=== PATIENT | female | born 1960 | race Caucasian/White ===

== ENCOUNTER → 2019-10-29 10:39 | Outpatient (BNVA) | payer BC, SELFPAY | PROVIDERS: Visit Provider Nurse Practitioner Family | DX: I10 Essential (primary) hypertension (principal) | CPT/HCPCS: 80053; 80061; 84443; 85025 ==

== ENCOUNTER → 2020-04-07 13:17 | Outpatient (BNVA) | payer BC, SELFPAY | PROVIDERS: Visit Provider Nurse Practitioner Family | DX: Z20.828 Contact with and (suspected) exposure to other viral communicable diseases (principal); J06.9 Acute upper respiratory infection, unspecified | CPT/HCPCS: 87635 ==

== ENCOUNTER 2022-10-12 09:28 | Outpatient (CLI) | payer BC, SELFPAY ==
--- NOTE | 2022-10-12 09:37 | MM_ITS ---
WS: [id number] BILATERAL SCREENING DIGITAL TOMOSYNTHESIS MAMMOGRAM WITH CAD HISTORY: SCREENING COMPARISON: 09/03/2008 Bilateral CC and MLO views with tomosynthesis and synthetic mammography submitted. Computer aided det ection analyzed. Breast composition: The breasts are almost entirely fatty. No suspicious masses, microcalcifications or architectural distortion. Benign calcifications scattered throughout the LEFT breast. MM/[place] [id number] IMPRESSION: BI-RADS: 2-Benign FOLLOW UP: 1 Year Follow-up
== END 2022-10-12 09:29 | disposition home or self-care (01) ==
PROVIDERS: PCP Nurse Practitioner Family; Visit Provider Nurse Practitioner Family
DX: Z12.31 Encounter for screening mammogram for malignant neoplasm of breast (principal)
CPT/HCPCS: 77063; 77067

== ENCOUNTER → 2023-10-27 10:17 | Outpatient (BNVA) | payer BC, SELFPAY | PROVIDERS: PCP Nurse Practitioner Family; Visit Provider Emergency Medicine | DX: R39.9 Unspecified symptoms and signs involving the genitourinary system (principal) | CPT/HCPCS: 81000; 87077; 87086; 87184 ==

== ENCOUNTER 2023-12-13 10:51 | Outpatient (CLI) | payer BC, SELFPAY ==
--- NOTE | 2023-12-13 11:13 | MM_ITS ---
WS: [email or web address] Bilateral screening 3D tomosynthesis digital mammogram, 12/13/2023 Clinical Data: SCREENING Comparison: 10/12/2022, 09/03/2008, 02/22/2006. Findings: The breast parenchymal pattern shows fat replacement. No spiculated masses or clustered calcification s are seen. There are benign calcifications throughout the left breast. There are surgical clips in t he right axilla. There are mole markers on the right breast. There are no secondary signs of carcinom a. MM/[id number] Impression: 1. Negative bilateral mammogram unchanged. 2. Recommend annual screening mammograms. BIRADS: 1-Negative FOLLOW UP: 1 Year Follow-up The CAD bad cloth checker was used.
== END 2023-12-13 10:52 | disposition home or self-care (01) ==
PROVIDERS: PCP Nurse Practitioner Family; Visit Provider Nurse Practitioner Family
DX: Z12.31 Encounter for screening mammogram for malignant neoplasm of breast (principal)
CPT/HCPCS: 77063; 77067

== ENCOUNTER 2024-10-28 11:16 | Emergency (ER) | payer BC, MEDICARE, SELFPAY ==
[2024-10-28 11:45] VITALS: BP 146/90; PULSE 81; TEMP 36.7; O2SAT 97
--- NOTE | 2024-10-28 12:14 | ECG_ITS ---
[facility] Test Date: 2024-10-28 Pat Name: Sosa Ernst Department: Room: Gender: Female Pillar Man: : 1960 Requested By: Nick Mathews Order Number: [id number] Nargis MD: Jesus Perez M.D. Measurements Intervals [place] Rate: 80 P: 61 NM: 179 QRS: 28 QRSD: 96 T: 52 QT: 355 QTc: 411 Interpretive Statements SINUS RHYTHM No previous ECG available for comparison Electronically Signed On 10-29-2024 08:19:57 CDT by Jesus Perez M.D. [id number]
--- NOTE | 2024-10-28 12:14 | CT_ITS ---
WS: [email or web address] Exam: CT head wo con* [id number] Date/Time of Exam: 10/28/2024 1:21 PM Reason For Exam: Right-sided weakness dysarthria DLP: 944.[address] scans at [facility] use at least one of these dose optimization techniques: automated exposure control; mA and/or kV adjustment per patient size (includes targeted exams where dose is matched to clinical indication); or iterative reconstruction. Extensive areas of low-attenuation in the LEFT frontal, parietal, temporal and occipital lobes with encephalomalacia. Generalized edema of the LEFT cerebral hemisphere with about 12 mm shift across midline. This may represent primary brain neoplasm or more likely metastatic disease. Infection and abscess also possible. There is some compression of the LEFT lateral ventricle. There is an area of increased attenuation in the RIGHT frontal lobe suspicious for a parenchymal hemorrhage that is small. The brain stem and cerebellum are unremarkable. The skull is intact. Mastoids and facial sinuses are clear. Normal orbits and optic globes. Recommendations: MRI of the brain with and without contrast would be indicated for further work-up. CT/CT head wo con* [id number] IMPRESSION: 1. Areas of encephalomalacia and decreased attenuation in the LEFT frontal, par ietal, temporal and occipital lobes suggesting neoplasm. There are areas of enc ephalomalacia that may represent tumor necrosis. Generalized LEFT cerebral martell sphere edema with a 12 mm LEFT to RIGHT shift. Differential considerations woul d include primary brain neoplasm, metastatic disease or infection with abscess. 2. Focal area of increased attenuation in the medial RIGHT frontal lobe suspici ous for a parenchymal hemorrhage in this area.
[2024-10-28 13:02] LABS: Hematocrit 43.9 % (36-47); Hemoglobin 14.10 g/dL (11.27-16.99); Mean Corpuscular HGB Conc 32.1 g/dL (30-55); Mean Corpuscular Hemoglobin 28.4 pg (27-33); Mean Corpuscular Volume 88.5 fl (85-98); Nucleated Red Blood Cells % 0 %; Platelet Count 260 10^3/cmm (157-399); Red Blood Count 4.96 10^6/uL (3.85-5.65); White Blood Count 8.54 10^3/uL (3.29-11.43)
[2024-10-28 13:24] LABS: Alanine Aminotransferase 14 U/L (0-33); Albumin Level 4.0 g/dL (3.5-5.2); Alkaline Phosphatase 72 U/L (35-105); Anion Gap 14.4 (5-19); Aspartate Amino Transferase 13 U/L (0-32); Blood Urea Nitrogen 5 mg/dL (8-23); Calcium 9.7 mg/dL (8.5-10.5); Carbon Dioxide 24 mmol/L (22-29); Chloride 106 mmol/L (98-107); Creatinine Clr Calc Pharmacy 148.0331; Globulin 3.2 g/dL (1.3-4.6); Glucose 117 mg/dL (65-115); Osmolality Calculated 290 mOsm/kg (285-295); Potassium 3.4 mmol/L (3.5-5.1); Sodium 141 mmol/L (136-145); Total Protein 7.2 g/dL (6.6-8.7)
--- NOTE | 2024-10-28 13:31 | ED_ITS ---
HPI - Weakness 2 General: Chief complaint: Weakness Stated complaint: dr ashby, stroke like symptoms Time Seen by Provider: 10/28/24 13:13 History of Present Illness: 63-year-old female who presents to the e mergency room with slurred speech right- sided weakness x 1 week. She has unequal cant gang sawyer in her hands. She was sent here by her primary care physician. She denies any headache no chest pain no abdominal pain. Patient has remote history of melanoma. She had a follow-up with this in January 2024 she is not currently receiving any treatment. Associated symptoms: Denies chest pain, chills, dysuria or fever(s) Related Data Previous Rx's ?Medication ?Instructions ?Recorded triamcinolone acetonide 0.1 % 1 applic topical BID #80 grams 10/10/19 topical cream lisinopril 10 mg tablet 10 mg PO DAILY #30 tabs 04/25 01/12 sulfamethoxazole 800 1 tab PO BID 7 days #14 tabs 10/27/23 mg-trimethoprim 160 mg tablet (Bactrim DS) Allergies Allergy/AdvReac Type Severity Reaction Status Date / Time No Known Allergies Allergy Verified 10/28/24 11:52 Review of Systems 2 Const: Denies: fever(s) or chills Card: Denies: chest pain Resp: Denies: dyspnea GI: Denies: abdominal pain : Denies: dysuria, urinary frequency or urinary urgency Musc: Denies: neck pain or back pain Skin/Breast: Denies: rash PFSH ED 2 PFSH: Surgical History History of lumpectomy of right breast Hx of dilation and curettage Family History Mother Cancer Father Diabetes Family/Other Psychiatric illness Denies family history of Clotting disorder Bleeding disorder Social History Smoking and tobacco/nicotine status: unknown if used tobacco/nicotine Second hand smoke exposure: Yes Alcohol intake: never Lives independently: Yes Household members: spouse Marital status: service: No Current occupational status: unemployed Current gender identity: Female Special jered needs: No Agree to transfusion: Yes Physical Exam 2 Const: GENERAL APPEARANCE: cooperative ORIENTATION/CONSCIOUSNESS: Yes awake, Yes oriented to person, Yes oriented to place and Yes oriented to time HENMT: COMMON NORMALS: normocephalic, atraumatic and hearing grossly normal bilaterally HEAD & SCALP: normocephalic and atraumatic Resp: COMMON NORMALS: normal respiratory effort, No retractions, No use of accessory muscles and clear to auscultation bilaterally AUSCULTATION: clear to auscultation bilaterally Cardio: COMMON NORMALS: regular rate, regular rhythm and No murmurs present (Cardio) RATE: regular rate RHYTHM: regular rhythm GI: COMMON NORMALS: Soft to palpation and No hepatosplenomegaly present A USCULTATION: Yes normoactive bowel sounds PALPATION: Yes Soft to palpation, No Tenderness to palpation present (GI), No Guarding due to palpation present (GI) and Yes No hepatosplenomegaly present Extremity: COMMON NORMALS: normal to inspection, capillary refill normal, no clubbing, cyanosis or edema, no calf tenderness and no pedal edema Neuro: SENSORIUM/ORIENTATION: Yes oriented to person, Yes oriented to place and Yes oriented to time OTHER: Ataxia in the right arm and leg right leg weakness in the right arm and leg decreased sensation on the right arm and leg as well. Slight decrease in sensation of the right side of the face. No facial droop or weakness. Skin: COMMON NORMALS: no rashes or lesions noted GENERAL SKIN EXAM: no rashes or lesions noted Course 2 Vital Signs: Vital signs: Vital Signs Temperature 98.1 F 10/28/24 11:45 Pulse Rate 84 10/28/24 20:05 Respiratory Rate 18 10/28/24 20:05 Blood Pressure 142/93 10/28/24 20:05 Pulse Oximetry 95 10/28/24 20:05 Oxygen Delivery Me thod Room Air 10/28/24 16:02 MDM - Weakness Medical Decision Making CT shows mass effect CT with contrast confirms several what appear to be left- sided brain metastatic lesions with a midline shift. She does have subtle neurologic deficits with right arm drift right leg weakness and ataxia in the right arm and leg. Discussed Dr. Ahn of neurosurgery who recommends admission to hospitalist service they can consult as appropriate. After consulting with the transfer center they recommended transfer to the ER. Discussed with ER physician Jessica Lim to accept ER to ER. Patient was given dexamethasone here in the emergency room here she is stable at the time of transfer. Discussed findings with patient and her family at the bedside. Medical Records I reviewed the patient's medical records. Lab Data I reviewed the patient's lab results. 10/28/24 12:55 10/28/24 12:55 Radiology Impressions Chest X-Ray 10/28/24 15:16 IMPRESSION: No acute findings. Head CT 10/28/24 15:16 IMPRESSION: 1. Extensive encephalomalacia of the LEFT cerebral hemisphere with LEFT cerebral edema and LEFT to RIGHT midline shift. There are numerous contrast-enhancing nodules in the LEFT hemisphere as well as the RIGHT frontal lobe. Metastatic disease most likely however primary brain neoplasm with satellite lesions might have the same appearance. Laboratory Results WBC 8.54 10^3/uL (3.29-11.43) 10/28/24 12:55 RBC 4.96 10^6/uL (3.85-5.65) 10/28/24 12:55 Hgb 14.10 g/dL (11.27-16.99) 10/28/24 12:55 Hct 43.9 % (36-47) 10/28/24 12:55 MCV 88.5 fl (85-98) 10/28/24 12:55 MCH 28.4 pg (27-33) 10/28/24 12:55 MCHC 32.1 g/dL (30-55) 10/28/24 12:55 RDW 13.3 % (12.1-15.1) 10/28/24 12:55 Plt Count 260 10^3/cmm (157-399) 10/28/24 12:55 MPV 9.5 fL (7.4-10.4) 10/28/24 12:55 Neut % (Auto) 67.9 % 10/28/24 12:55 Lymph % (Auto) 24.0 % 10/28/24 12:55 Luna % (Auto) 7.0 % 10/28/24 12:55 Eos % (Auto) 0.2 % 10/28/24 12:55 Baso % (Auto) 0.4 % 10/28/24 12:55 Neut # (Auto) 5.80 10^3/uL (1.8-7.7) 10/28/24 12:55 Lymph # (Auto) 2.1 10^3/uL (0.8-4.8) 10/28/24 12:55 Luna # (Auto) 0.6 10^3/uL (0.2-0.9) 10/28/24 12:55 Eos # (Auto) 0.0 10^3/uL (0.0-0.8) 10/28/24 12:55 Baso # (Auto) 0.0 10^3/uL (0.0-0.1) 10/28/24 12:55 Nucleated RBC % (auto) 0 % 10/28/24 12:55 Nucleated RBCs # 0.0 /100WBC 10/28/24 12:55 Sodium 141 mmol/L (136-145) 10/28/24 12:55 Potassium 3.4 mmol/L (3.5-5.1) L 10/28/24 12:55 Chloride 106 mmol/L (98-107) 10/28/24 12:55 Carbon Dioxide 24 mmol/L (22-29) 10/28/24 12:55 Anion Gap 14.4 (5-19) 10/28/24 12:55 BUN 5 mg/dL (8-23) L 10/28/24 12:55 Creatinine 0.5 mg/dL (0.5-0.9) 10/28/24 12:55 GFR Calculation 124.2 mL/min (90-130) 10/28/24 12:55 Glucose 117 mg/dL (65-115) H 10/28/24 12:55 Calculated Osmolality 290 mOsm/kg (285-295) 10/28/24 12:55 Calcium 9.7 mg/dL (8.5-10.5) 10/28/24 12:55 Total Bilirubin 0.5 mg/dL (0.15-1.2) 10/28/24 12:55 AST 13 U/L (0-32) 10/28/24 12:55 ALT 14 U/L (0-33) 10/28/24 12:55 Alkaline Phosphatase 72 U/L (35-105) 10/28/24 12:55 Total Protein 7.2 g/dL (6.6-8.7) 10/28/24 12:55 Albumin 4.0 g/dL (3.5-5.2) 10/28/24 12:55 Globulin 3.2 g/dL (1.3-4.6) 10/28/24 12:55 Urine Color Yellow (Yellow) 10/28/24 14:10 Urine Appearance Clear (CLEAR) 10/28/24 14:10 Urine pH 6.0 (5-7) 10/28/24 14:10 Ur Specific [place] 1.010 (1.005-1.030) 10/28/24 14:10 Urine Protein Negative (Negative) 10/28/24 14:10 Urine Glucose (UA) Negative (Normal) 10/28/24 14:10 Urine Ketones Trace (Negative) 10/28/24 14:10 Urine Blood Trace (Negative) A 10/28/24 14:10 Urine Nitrate Negative (Negative) 10/28/24 14:10 Urine Bilirubin Negative (Negative) 10/28/24 14:10 Urine Urobilinogen 1.0 mg/dL (Negative) 10/28/24 14:10 Ur Leukocyte Esterase 2+ (Negative) A 10/28/24 14:10 Urine RBC 3-5 /hpf (0-2) 10/28/24 14:10 Urine WBC 21-50 /hpf (0-5) H 10/28/24 14:10 Ur Squamous Epith Cells 0-5 /hpf (0-5) 10/28/24 14:10 Amorphous Sediment Not Reportable 10/28/24 14:10 Urine Bacteria Trace /hpf (NONE) 10/28/24 14:10 Hyaline Casts 0.40 /lpf 10/28/24 14:10 All radiology interpretation(s) finalized by discharge Discharge Plan Discharge Patient Disposition: Transfer to ED Clinical Impression: 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 Condition: Stable Prescriptions: No Action triamcinolone acetonide 0.1 % cream 1 applic TOPICAL BID Qty: 80 0RF sulfamethoxazole-trimethoprim [Bactrim DS] 800-160 mg tablet 1 tab PO BID 7 Days Qty: 14 0RF lisinopril 10 mg tablet 10 mg PO DAILY Qty: 30 0RF Rx Instructions: needs appt and labs Referrals: Joanna Diaz DO [Primary Care Provider, MEDICAL OFFICE WORKER] Print Language: Gibraltarian Coding Level of Care Code 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
[2024-10-28 13:58] VITALS: PULSE 80; O2SAT 99
[2024-10-28 14:00] VITALS: RESP 18; O2SAT 98
[2024-10-28 14:26] LABS: Glucose Urine UA Negative (Normal); Nitrate Urine Negative (Negative); Specific Gravity, Urine 1.010 (1.005-1.030)
[2024-10-28 14:31] LABS: Add Urine Microscopic? YES
--- NOTE | 2024-10-28 15:16 | CT_ITS ---
WS: [email or web address] Exam: CT head w con [id number] Date/Time of Exam: 10/28/2024 3:18 PM Reason For Exam: Left brain mass DLP: 975.[address] scans at [facility] use at least one of these dose optimization techniques: automated exposure control; mA and/or kV adjustment per patient size (includes targeted exams where dose is matched to clinical indication); or iterative reconstruction. Compared to noncontrast exam performed earlier on the same day at 1:27 p.m. There are numerous contrast-enhancing masses and nodules in the frontal, temporal, parietal and occipital lobes of the LEFT cerebral hemisphere. There are also several contrast-enhancing nodules identified in the RIGHT frontal lobe. Extensive areas of encephalomalacia are noted in the LEFT hemisphere. Mild left to RIGHT midline shift noted again. Some compression on the LEFT lateral ventricle. The cerebellum is intact as well as the brainstem. The skull is intact. The mastoids and facial sinuses are clear as visualized. CT/CT head w con [id number] IMPRESSION: 1. Extensive encephalomalacia of the LEFT cerebral hemisphere with LEFT cerebra l edema and LEFT to RIGHT midline shift. There are numerous contrast-enhancing nodules in the LEFT hemisphere as well as the RIGHT frontal lobe. Metastatic di sease most likely however primary brain neoplasm with satellite lesions might h ave the same appearance.
--- NOTE | 2024-10-28 15:16 | XRR_ITS ---
PROCEDURE INFORMATION: Exam: XR Chest Exam date and time: 10/28/2024 3:31 PM Age: 63 years old Clinical indication: Cough and dyspnea; Additional info: Dyspnea/cough TECHNIQUE: Imaging protocol: Radiologic exam of the chest. Views: 1 view. COMPARISON: No relevant prior studies available. FINDINGS: Lungs: Lungs are clear. Pleural spaces: There is no pleural effusion or pneumothorax. Heart/Mediastinum: Cardiomediastinal contours are unremarkable. Bones/joints: Bones are unremarkable. XR/XR chest 1V portable [id number] IMPRESSION: No acute findings.
[2024-10-28] MEDS: iohexol 350 mg/mL 500 mL Btl (per mL) IV (15:45)
[2024-10-28 16:02] VITALS: BP 167/86; PULSE 79; O2SAT 100
[2024-10-28] MEDS: cefTRIAXone 1,000 mg SDV 1000 MG IVP (16:02)
[2024-10-28 18:47] VITALS: BP 153/87
[2024-10-28 20:05] VITALS: BP 142/93; PULSE 84; RESP 18; O2SAT 95
== END 2024-10-28 20:11 ==
PROVIDERS: Emergency Provider Family Medicine; PCP Family Medicine
DX: C79.31 Secondary malignant neoplasm of brain (principal); G93.89 Other specified disorders of brain
CPT/HCPCS: 36415; 70450; 70460; 71045; 80053; 81001; 85025; 87086; 93005; 96374; 99285; J0696; J1100

== ENCOUNTER 2025-01-05 19:57 | Emergency (ER) | payer BC, MEDICARE, SELFPAY ==
[2025-01-05] VITALS (7 sets, daily range): BP systolic 127–158; BP diastolic 74–95; PULSE 97–98; RESP 18; TEMP 37.1; O2SAT 96–98
--- NOTE | 2025-01-05 21:15 | CTR_ITS ---
PROCEDURE INFORMATION: Exam: CT Head Without Contrast Exam date and time: 01/05/2025 9:33 PM Age: 64 years old Clinical indication: Speech disturbance and weakness, extremity; Right; RT sided weakness with slurred speech x 3 days. History of multiple left sided intracranial neoplasms. ; Additional info: R sided weakness, speech problems, >2 days TECHNIQUE: Imaging protocol: Computed tomography of the head without contrast. Total images: 2 Radiation optimization: All CT scans at this facility use at least one of these dose optimization techniques: automated exposure control; mA and/or kV adjustment per patient size (includes targeted exams where dose is matched to clinical indication); or iterative reconstruction. COMPARISON: 1. CT head w con [id number] 10/28/2024 3:[address] head wo con* [id number] 10/28/2024 1:26 PM RADIATION DOSE METRICS: Total DLP (mGy-cm): 960.85 FINDINGS: Brain: Stable subfalcine 2.5 mm rightward midline shift. Generalized less cerebral vasogenic edema throughout the centrum semiovale and temporal lobe, with relative sparing of the overlying saunders matter almost certainly accounted for by underlying space-occupying intraparenchymal masses (please see contrast-enhanced CT of 10/28/2024 in this regard). Right frontal localized vasogenic edema accounted for by an underlying enhancing mass (please see CT head with contrast 10/28/2024). No acute intracranial hemorrhage. Normal-appearing bilateral cerebellum, guicho and medulla. Cerebral ventricles: No ventriculomegaly. Stable incomplete effacement of the left lateral ventricle due to left hemispheric mass effect accounted for by generalized vasogenic edema as described above. Paranasal sinuses: The sinuses are normal. Mastoid air cells: Mastoid air cells and tympanic cavities appear aerated without pathologic fluid accumulation. Auditory system: Bilateral external auditory canal debris likely represents excess cerumen (earwax). Teeth: Metallic dental crowns, bridge-work or/and amalgam fillings which produce streak artifact, are mentioned for completeness although otherwise not known to be of clinical significance. Bones: Benign hyperostosis frontalis interna, thickening of the inner table frontal calvarium. No acute osseous abnormality. Soft tissues: No abnormalities. CT/CT head wo con* [id number] IMPRESSION: 1. Left hemisphere generalized vasogenic edema noted once again accounted for by known underlying enhancing masses (CT 10/28/2024). 2. Stable subfalcine 2.5 mm rightward midline shift. 3. Right frontal white matter localized vasogenic edema accounted for by an underlying enhancing mass (please see CT head with contrast 10/28/2024). 4. No acute intracranial hemorrhage. 5. Stable incomplete effacement of the left lateral ventricle. Recommendation: Correlation with baseline MRI brain without and with contrast, or performance of the same, if this has not yet been performed.
--- NOTE | 2025-01-05 21:15 | XRR_ITS ---
PROCEDURE INFORMATION: Exam: XR Chest Exam date and time: 01/05/2025 9:28 PM Age: 64 years old Clinical indication: Prior surgery; Surgery date: 6+ months; Surgery type: Lisa cath; RT sided weakness with slurred speech x 3 days. History of multiple left sided intracranial neoplasms. ; Additional info: AMS TECHNIQUE: Imaging protocol: Radiologic exam of the chest. Views: 1 view. Total images: 280 COMPARISON: CR XR chest 1V portable [id number] 10/28/2024 3:31 PM FINDINGS: Limitations: Quality of examination is limited by large patient body habitus. Tubes, catheters and devices: An infusion port is in satisfactory location, its tip in the superior vena cava. Lungs: Mild nonspecific prominence of the pulmonary vasculature. Lungs are well-aerated without focal acute pathologic pulmonary parenchymal process. Pleural spaces: No significant pleural effusion. No pneumothorax. Heart/Mediastinum: Mild cardiomegaly. Vasculature: Aortic wall demonstrates mild atherosclerotic calcification. Bones/joints: Moderate generalized degenerative changes of the vertebral column characterized by multilevel osteophyte formation, degenerative disc height loss and facet arthrosis commensurate with patient's age. Shoulder glenohumeral osteoarthritis. Acromioclavicular joint mild chronic degenerative arthrosis. Soft tissues: Stable right axillary surgical clips. Soft tissues are normal as visualized, demonstrating no masses or induration. XR/XR chest 1V portable [id number] IMPRESSION: 1. No adverse interval change radiographically. 2. An infusion port is in satisfactory location, its tip in the superior vena cava. 3. Mild nonspecific prominence of the pulmonary vasculature. 4. Generalized moderate skeletal degenerative and other chronic/nonacute findings as described above. COMMENTS: Quality of examination is limited by large patient body habitus.
[2025-01-05 22:10] LABS: Hematocrit 30.1 % (36-47); Hemoglobin 9.30 g/dL (11.27-16.99); Mean Corpuscular HGB Conc 30.9 g/dL (30-55); Mean Corpuscular Hemoglobin 30.0 pg (27-33); Mean Corpuscular Volume 97.1 fl (85-98); Nucleated Red Blood Cells % 0 %; Platelet Count 295 10^3/cmm (157-399); Red Blood Count 3.10 10^6/uL (3.85-5.65); White Blood Count 6.71 10^3/uL (3.29-11.43)
[2025-01-05 22:11] LABS: Glucose Urine UA Negative (Normal); Nitrate Urine Negative (Negative); Specific Gravity, Urine 1.004 (1.005-1.030)
[2025-01-05 22:16] LABS: Add Urine Microscopic? YES
[2025-01-05 22:18] LABS: INR 1.15 (0.8-1.2); Partial Thromboplastin Time 28.3 SECONDS (23.9-36.7); Prothrombin Time 15.50 SECONDS (12.1-14.9)
[2025-01-05 22:22] LABS: Lactic Sepsis W/Reflex 0.8 mmol/L (0.5-2.2)
[2025-01-05 22:35] LABS: Alanine Aminotransferase 11 U/L (0-33); Albumin Level 3.1 g/dL (3.5-5.2); Alkaline Phosphatase 50 U/L (35-105); Anion Gap 14.3 (5-19); Aspartate Amino Transferase 9 U/L (0-32); Blood Urea Nitrogen 6 mg/dL (8-23); Calcium 8.5 mg/dL (8.5-10.5); Carbon Dioxide 23 mmol/L (22-29); Chloride 104 mmol/L (98-107); Creatinine Clr Calc Pharmacy 91.7048; Globulin 2.3 g/dL (1.3-4.6); Glucose 102 mg/dL (65-115); Magnesium 1.9 mg/dL (1.7-2.3); NT Pro B Type Natriuretic Pept 360 pg/mL (0-125); Osmolality Calculated 284 mOsm/kg (285-295); Potassium 3.3 mmol/L (3.5-5.1); Sodium 138 mmol/L (136-145); Total Protein 5.4 g/dL (6.6-8.7)
[2025-01-05 22:45] LABS: UA Slide Review UA Slide Review Perf
--- NOTE | 2025-01-05 22:58 | ED_ITS ---
HPI - Weakness 2 General: Chief complaint: Weakness Stated complaint: R WEAKNESS Time Seen by Provider: 01/05/25 20:09 History of Present Illness: The patient is a 64-year-old female with stage IV brain cancer who presents with worsening right-sided weakness, difficulty speaking, and swelling in her right leg and hand. According to the patient's caregiver, these symptoms began approximately 3-4 days ago (/Monday) and have progressively worsened. The patient is having increasing difficulty with word-finding and speech, at times being unable to speak at all. She demonstrates right arm weakness and cannot lift her right arm at the shoulder. She also has right leg weakness causing her to drag the leg when attempting to walk. 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 She was started on Eliquis (apixaban), initially at 10mg BID and now on 5mg BID. The caregiver reports the patient has been excessively fatigued, sleeping for 12 hours without getting up to use the bathroom (unusual for her), then sleeping most of the day. The patient has also experienced liquid diarrhea and decreased appetite over the past few days. The caregiver notes that prior to the recent hospitalization, the patient had been doing well, even walking without her walker, but has declined significantly since discharge. The patient denies headaches, fever, vomiting, or changes in vision. Related Data Previous Rx's ?Medication ?Instructions ?Recorded triamcinolone acetonide 0.1 % 1 applic topical BID #80 grams 10/10/19 topical cream lisinopril 10 mg tablet 10 mg PO DAILY #30 tabs 04/25 01/12 sulfamethoxazole 800 1 tab PO BID 7 days #14 tabs 10/27/23 mg-trimethoprim 160 mg tablet (Bactrim DS) Allergies Allergy/AdvReac Type Severity Reaction Status Date / Time No Known Allergies Allergy Verified 10/28/24 11:52 PFSH ED 2 PFSH: Surgical History History of lumpectomy of right breast Hx of dilation and curettage Family History Mother Cancer Father Diabetes Family/Other Psychiatric illness Denies family history of Clotting disorder Bleeding disorder Social History Smoking and tobacco/nicotine status: unknown if used tobacco/nicotine Second hand smoke exposure: Yes Alcohol intake: never Lives independently: Yes Household members: spouse Marital status: service: No Current occupational status: unemployed Current gender identity: Female Special jered needs: No Agree to transfusion: Yes Physical Exam 2 Const: GENERAL APPEARANCE: cooperative, well kempt, ill appearing and frail appearing NUTRITIONAL APPEARANCE: obese morbidly obese O RIENTATION/CONSCIOUSNESS: Yes awake, Yes oriented to person, Yes oriented to place and Yes oriented to time HENMT: COMMON NORMALS: normocephalic and atraumatic HEAD & SCALP: n ormocephalic and atraumatic Eye: COMMON NORMALS: Equal, round and reactive pupils present, EOMs intact bilaterally and conjunctivae normal CONJUNCTIVA: Yes conjunctivae normal P UPIL: Yes Equal, round and reactive pupils present Chest: CHEST: Yes Symmetrical chest wall rise Resp: COMMON NORMALS: normal respiratory effort and clear to auscultation bilaterally EFFORT & INSPECTION: No respiratory distress AUSCULTATION: c lear to auscultation bilaterally Cardio: COMMON NORMALS: regular rate and regular rhythm RATE: regular rate RHYTHM: regular rhythm GI: COMMON NORMALS: Normal to inspection, nondistended, normoactive bowel sounds present and Soft to palpation PALPATION: Yes Soft to palpation Neuro: SENSORIUM/ORIENTATION: Yes oriented to person, Yes oriented to place and Yes oriented to time CRANIAL NERVES: Yes CN normal except as noted C OORDINATION/BALANCE: No [id number]-[id number] test normal and No iqaj-fy-jdhn test normal SPEECH: abnormal speech and expressive aphasia SENSORY EXAM: Yes extremities (intact) MOTOR EXAM: Pronator motor function present pronator drift of right upper extremity COORDINATION: [id number]-we-[id number] test abnormal and ttqv-df-[id number] test abnormal Psych: APPEARANCE: Yes well kempt Course 2 Vital Signs: Vital signs: Vital Signs Temperature 98.8 F 01/05/25 19:58 Pulse Rate 97 01/05/25 20:36 Respiratory Rate 18 01/05/25 20:36 Blood Pressure 136/74 01/05/25 23:00 Pulse Oximetry 98 01/05/25 23:00 Oxygen Delivery Me thod Room Air 01/05/25 22:32 MDM - Weakness Medical Decision Making 64-year-old female with a history of metastatic brain cancer, progressive weakness and speech deficit. Vital signs been stable. She is afebrile. Hemoglobin is 9.3. Potassium is 3.3. It is repleted. Chest x-ray shows no interval change. Head CT shows no definite change since contrast CT of 10/28/2024. No active bleeding. She does have left hemisphere generalized vasogenic edema. This could be causing her right-sided symptoms if it is worsening. Is difficult to tell by CT. She is given 10 mg of dexamethasone. Her speech is somewhat improved at this point. I do not believe her prognosis is good. I have no MRI availability here. I have no inpatient neurology service currently. The patient's oncologist is at [facility] in [place]. I spoke with their transfer line. I also spoke with my counterpart in the emergency department there. They have agreed to take and transfer from ER to ER. No ground track availability at this point. Air is not available due to weather. She remained stable for transfer when transport available. Lab Data 01/05/25 21:49 01/05/25 21:49 Radiology Impressions Chest X-Ray 01/05/25 21:15 IMPRESSION: 1. No adverse interval change radiographically. 2. An infusion port is in satisfactory location, its tip in the superior vena cava. 3. Mild nonspecific prominence of the pulmonary vasculature. 4. Generalized moderate skeletal degenerative and other chronic/nonacute findings as described above. COMMENTS: Quality of examination is limited by large patient body habitus. Head CT 01/05/25 21:15 IMPRESSION: 1. Left hemisphere generalized vasogenic edema noted once again accounted for by known underlying enhancing masses (CT 10/28/2024). 2. Stable subfalcine 2.5 mm rightward midline shift. 3. Right frontal white matter localized vasogenic edema accounted for by an underlying enhancing mass (please see CT head with contrast 10/28/2024). 4. No acute intracranial hemorrhage. 5. Stable incomplete effacement of the left lateral ventricle. Recommendation: Correlation with baseline MRI brain without and with contrast, or performance of the same, if this has not yet been performed. Laboratory Results WBC 6.71 10^3/uL (3.29-11.43) 01/05/25 21:49 RBC 3.10 10^6/uL (3.85-5.65) L 01/05/25 21:49 Hgb 9.30 g/dL (11.27-16.99) L 01/05/25 21:49 Hct 30.1 % (36-47) L 01/05/25 21:49 MCV 97.1 fl (85-98) 01/05/25 21:49 MCH 30.0 pg (27-33) 01/05/25 21:49 MCHC 30.9 g/dL (30-55) 01/05/25 21:49 RDW 17.6 % (12.1-15.1) H 01/05/25 21:49 Plt Count 295 10^3/cmm (157-399) 01/05/25 21:49 MPV 8.6 fL (7.4-10.4) 01/05/25 21:49 Neut % (Auto) 74.7 % 01/05/25 21:49 Lymph % (Auto) 14.8 % 01/05/25 21:49 [place] % (Auto) 9.4 % 01/05/25 21:49 Eos % (Auto) 0.3 % 01/05/25 21:49 Baso % (Auto) 0.1 % 01/05/25 21:49 Neut # (Auto) 5.01 10^3/uL (1.8-7.7) 01/05/25 21:49 Lymph # (Auto) 1.0 10^3/uL (0.8-4.8) 01/05/25 21:49 [place] # (Auto) 0.6 10^3/uL (0.2-0.9) 01/05/25 21:49 Eos # (Auto) 0.0 10^3/uL (0.0-0.8) 01/05/25 21:49 Baso # (Auto) 0.0 10^3/uL (0.0-0.1) 01/05/25 21:49 Nucleated RBC % (auto) 0 % 01/05/25 21:49 Nucleated RBCs # 0.0 /100WBC 01/05/25 21:49 PT 15.50 SECONDS (12.1-14.9) H 01/05/25 21:49 INR 1.15 (0.8-1.2) 01/05/25 21:49 APTT 28.3 SECONDS (23.9-36.7) 01/05/25 21:49 Sodium 138 mmol/L (136-145) 01/05/25 21:49 Potassium 3.3 mmol/L (3.5-5.1) L 01/05/25 21:49 Chloride 104 mmol/L (98-107) 01/05/25 21:49 Carbon Dioxide 23 mmol/L (22-29) 01/05/25 21:49 Anion Gap 14.3 (5-19) 01/05/25 21:49 BUN 6 mg/dL (8-23) L 01/05/25 21:49 Creatinine 0.5 mg/dL (0.5-0.9) 01/05/25 21:49 GFR Calculation 123.8 mL/min (90-130) 01/05/25 21:49 Glucose 102 mg/dL (65-115) 01/05/25 21:49 Calculated Osmolality 284 mOsm/kg (285-295) L 01/05/25 21:49 Lactic Acid 0.8 mmol/L (0.5-2.2) 01/05/25 21:49 Calcium 8.5 mg/dL (8.5-10.5) 01/05/25 21:49 Magnesium 1.9 mg/dL (1.7-2.3) 01/05/25 21:49 Total Bilirubin 0.8 mg/dL (0.15-1.2) 01/05/25 21:49 AST 9 U/L (0-32) 01/05/25 21:49 ALT 11 U/L (0-33) 01/05/25 21:49 Alkaline Phosphatase 50 U/L (35-105) 01/05/25 21:49 Creatine Kinase 13 U/L (26-192) L 01/05/25 21:49 C-Reactive Protein 12.1 mg/L (0.0-4.9) H 01/05/25 21:49 NT-Pro-B Natriuret Pep 360 pg/mL (0-125) H 01/05/25 21:49 Total Protein 5.4 g/dL (6.6-8.7) L 01/05/25 21:49 Albumin 3.1 g/dL (3.5-5.2) L 01/05/25 21:49 Globulin 2.3 g/dL (1.3-4.6) 01/05/25 21:49 Urine Color Yellow (Yellow) 01/05/25 22:03 Urine Appearance Clear (CLEAR) 01/05/25 22:03 Urine pH 7.0 (5-7) 01/05/25 22:03 Ur Specific [place] 1.004 (1.005-1.030) L 01/05/25 22:03 Urine Protein Negative (Negative) 01/05/25 22:03 Urine Glucose (UA) Negative (Normal) 01/05/25 22:03 Urine Ketones Trace (Negative) 01/05/25 22:03 Urine Blood Negative (Negative) 01/05/25 22:03 Urine Nitrate Negative (Negative) 01/05/25 22:03 Urine Bilirubin Negative (Negative) 01/05/25 22:03 Urine Urobilinogen 1.0 mg/dL (Negative) 01/05/25 22:03 Ur Leukocyte Esterase Negative (Negative) 01/05/25 22:03 Urine RBC 0-2 /hpf (0-2) 01/05/25 22:03 Urine WBC 0-5 /hpf (0-5) 01/05/25 22:03 Ur Squamous Epith Cells 6-10 /hpf (0-5) 01/05/25 22:03 Amorphous Sediment Not Reportable 01/05/25 22:03 Urine Bacteria None seen /hpf (NONE) 01/05/25 22:03 Hyaline Casts 0.40 /lpf 01/05/25 22:03 All radiology interpretation(s) finalized by discharge Discharge Plan Discharge Patient Disposition: Xfer Short-Term Hosp Clinical Impression: Nontraumatic cerebral edema Condition: Fair Referrals: Joanna Diaz DO [Primary Care Provider, [facility]] Print Language: Icelandic Coding Level of Care Code ED Part Time for Adri Kemp
[2025-01-06] VITALS (8 sets, daily range): BP systolic 110–146; BP diastolic 69–78; PULSE 72–85; O2SAT 94–96
--- NOTE | 2025-01-06 04:10 | PC.NURSE ---
Pt report called to Gigi Barrera at [facility], denied further questions. Requested we provided ETA upon transfer.
== END 2025-01-06 09:12 | disposition short-term general hospital (02) ==
PROVIDERS: Emergency Provider Emergency Medicine; PCP Family Medicine
DX: G93.6 Cerebral edema (principal); C79.31 Secondary malignant neoplasm of brain
CPT/HCPCS: 36415; 70450; 71045; 80053; 81001; 82550; 83605; 83735; 83880; 85025; 85610; 85730; 86140; 87040; 96374; 99285; J1100

== ENCOUNTER 2025-01-30 10:55 | Emergency (ER) | payer BC, MEDICARE, SELFPAY ==
--- NOTE | 2025-01-30 11:01 | XRR_ITS ---
PROCEDURE INFORMATION: Exam: XR Chest Exam date and time: 01/30/2025 11:11 AM Age: 64 years old Clinical indication: Other: Weakness TECHNIQUE: Imaging protocol: Radiologic exam of the chest. Views: 1 view. COMPARISON: CR (CHEST, ) 01/05/2025 9:28 PM FINDINGS: Tubes, catheters and devices: Surgical clips again project over the right axilla and a right lavonne catheter terminates in the superior vena cava. Lungs: Unremarkable. No consolidation. Pleural spaces: Unremarkable. No pleural effusion. No pneumothorax. Heart/Mediastinum: Unremarkable. No cardiomegaly. Bones/joints: Unremarkable. XR/XR chest 1V portable [id number] IMPRESSION: No acute findings.
--- NOTE | 2025-01-30 11:01 | CT_ITS ---
WS: [id number] CT HEAD TECHNIQUE: Noncontrast CT of the head obtained from the skullbase to the vertex. CLINICAL INFORMATION: weakness COMPARISON: CT 01/05/2025 DLP: 999.[address] scans at [facility] use at least one of these dose optimization techniques: automated exposure control; mA and/or kV adjustment per patient size (includes targeted exams where dose is matched to clinical indication); or iterative reconstruction. FINDINGS: Diffuse vasogenic edema throughout the LEFT frontal parietal and temporal lobes with localized mass effect. Mass effect in the LEFT lateral ventricle with LEFT to RIGHT midline shift measuring 4.7 mm. Effacement LEFT lateral ventricle and frontal horn. Third ventricle remains patent. No hydrocephalus or trapping of the RIGHT ventricle. Again seen are the previously described underlying lesions resulting in the diffuse vasogenic edema these appear grossly stable considering lack of contrast. Persistent RIGHT frontal lesion with edema in the RIGHT frontal lobe similar in appearance. Slight uncal herniation with slight effacement of the suprasellar cistern. Ambient cisterns and fourth ventricle remain patent. No hemorrhage. New increased attenuation RIGHT caudate lesion measuring 6 mm not apparent on the prior study in December and faintly enhancing in October. This has progressed with mild surrounding edema. CT/CT head wo con* [id number] IMPRESSION: 1. Diffuse vasogenic edema LEFT hemisphere and RIGHT frontal lobe with underly ing lesions previously described and better visualized on the contrast-enhanced studies. Vasogenic is similar to previous and slightly progressed 2. Effacement of LEFT lateral ventricle with LEFT to RIGHT midline shift measu ring 4 to 5 mm slightly progressed. No significant trapping of the RIGHT latera l ventricle. Mild mass effect on the third ventricle which is new but remains p atent 3. New increased attenuation RIGHT caudate lesion measuring 6 mm which demonst rated faint enhancement on 10/28/2024. This was not apparent on the recent noncon trast study 01/05/2025. Mild surrounding edema. 4. Slight uncal herniation with slight effacement of the suprasellar cistern w hich remains patent. This is very slightly progressed compared to previous Notified Caprice Pope MD at 01/30/2025 12:56 PM.
[2025-01-30 11:02] VITALS: BP 133/84; PULSE 77; RESP 16; TEMP 36.4; O2SAT 96; BMI 64.0
--- NOTE | 2025-01-30 11:03 | ED_ITS ---
HPI - Weakness 2 General: Chief complaint: Weakness Stated complaint: R sided weakness Time Seen by Provider: 01/30/25 10:55 History of Present Illness: 64-year-old female with a history of hyp ertension, morbid obesity and a stage IV brain cancer with some resultant right-sided weakness for which she is receiving radiation therapy and steroids, chronic anticoagulation on Eliquis who presents emergency room by ambulance from home with a headache and somnolence. Caregiver says he thinks they stopped water pill but instead his daughter was giving her the water pill and not giving her her steroid. He says that other than being a bit somnolent she is at her baseline. Right arm weakness is not worse than usual. Her speech is not worse than usual. She can tell me her name etc. No fevers. No cough. Related Data Previous Rx's ?Medication ?Instructions ?Recorded triamcinolone acetonide 0.1 % 1 applic topical BID #80 grams 10/10/19 topical cream lisinopril 10 mg tablet 10 mg PO DAILY #30 tabs 04/25 01/12 sulfamethoxazole 800 1 tab PO BID 7 days #14 tabs 10/27/23 mg-trimethoprim 160 mg tablet (Bactrim DS) Allergies Allergy/AdvReac Type Severity Reaction Status Date / Time No Known Allergies Allergy Verified 10/28/24 11:52 PFSH ED 2 PFSH: Surgical History History of lumpectomy of right breast Hx of dilation and curettage Family History Mother Cancer Father Diabetes Family/Other Psychiatric illness Denies family history of Clotting disorder Bleeding disorder Social History Smoking and tobacco/nicotine status: unknown if used tobacco/nicotine Second hand smoke exposure: Yes Alcohol intake: never Lives independently: Yes Household members: spouse Marital status: service: No Current occupational status: unemployed Current gender identity: Female Special jered needs: No Agree to transfusion: Yes Physical Exam 2 Narrative: EXAM NARRATIVE: General: Alert, no acute distress. Skin: Warm, dry. Head: Normocephalic, atraumatic. Neck: Supple, trachea midline. Eye: Extraocular movements are intact. Ears, nose, mouth and throat: mucosa moist. Cardiovascular: Regular, Normal peripheral perfusion. Respiratory: Lungs are clear to auscultation, respirations are non-labored, breath sounds are equal, Symmetrical chest wall expansion. Gastrointestinal: Soft, Nontender, Non distended Musculoskeletal: Normal ROM, no deformity. Neurological: Alert and oriented, bilateral leg weakness, right arm weakness but she can move the arm. Psychiatric: Cooperative, initially fairly somnolent but does answer questions Course 2 Vital Signs: Vital signs: Vital Signs Temperature 97.5 F L 01/30/25 11:02 Pulse Rate 94 01/30/25 12:50 Respiratory Rate 16 01/30/25 11:02 Blood Pressure 123/84 01/30/25 12:50 Pulse Oximetry 96 01/30/25 12:50 Oxygen Delivery Me thod Room Air 01/30/25 12:50 MDM - Weakness Medical Decision Making Medical decision making: Differential diagnosis for patient presenting with generalized weakness including but not limited to and based on the above HPI, review of systems and physical exam: Sepsis. Dehydration. Renal failure. Electrolyte abnormalities. Anemia. Congestive heart failure. Hypotension. Coronary syndrome. Hepatitis. Cirrhosis. Infections such as pneumonia, urinary tract infection, Tick bourne illness, Cellulitis, Viral infections including influenza and Covid-19. Workup: labwork and lab/exam driven imaging ordered to evaluate, rule in and rule out above pathologies. CT of the head: Mild worsening of previous lesions and a new caudate lesion. See read below. This was reviewed and interpreted by myself the emergency room physician. I also reviewed the radiology report. Lab Review: Laboratory results were reviewed and interpreted by myself the emergency room physician. No leukocytosis. No anemia. No renal failure. Urinalysis is negative for infection. Blood gas does not show any CO2 retention. I reviewed the patient's medical record. Consultation: I spoke with Dr. Moreau the patient's oncologist at [facility] in [place]. He agrees restarting steroids and IV dose of steroids here so that all that can be done at this point. Nothing that would help within admission. Reexamination: Patient appears quite a bit more alert when I examined her. No increased work of breathing. No oxygen requirements. No change in her neurologic status from her recent baseline Assessment and plan: Medication error Weakness Brain tumor ? IV Decadron in the emergency room. - Discharged home - Discussed plan with patient. Answered any questions. - Evaluation and treatment of this problem were appropriate in the emergency setting. Lab Data 01/30/25 11:39 01/30/25 11:39 Radiology Impressions Chest X-Ray 01/30/25 11:01 IMPRESSION: No acute findings. Head CT 01/30/25 11:01 IMPRESSION: 1. Diffuse vasogenic edema LEFT hemisphere and RIGHT frontal lobe with underlying lesions previously described and better visualized on the contrast- enhanced studies. Vasogenic is similar to previous and slightly progressed 2. Effacement of LEFT lateral ventricle with LEFT to RIGHT midline shift measuring 4 to 5 mm slightly progressed. No significant trapping of the RIGHT lateral ventricle. Mild mass effect on the third ventricle which is new but remains patent 3. New increased attenuation RIGHT caudate lesion measuring 6 mm which demonstrated faint enhancement on 10/28/2024. This was not apparent on the recent noncontrast study 01/05/2025. Mild surrounding edema. 4. Slight uncal herniation with slight effacement of the suprasellar cistern which remains patent. This is very slightly progressed compared to previous Notified Caprice Pope MD at 01/30/2025 12:56 PM. Laboratory Results WBC 8.05 10^3/uL (3.29-11.43) 01/30/25 11:39 RBC 4.24 10^6/uL (3.85-5.65) 01/30/25 11:39 Hgb 12.70 g/dL (11.27-16.99) 01/30/25 11:39 Hct 40.2 % (36-47) 01/30/25 11:39 MCV 94.8 fl (85-98) 01/30/25 11:39 MCH 30.0 pg (27-33) 01/30/25 11:39 MCHC 31.6 g/dL (30-55) 01/30/25 11:39 RDW 15.5 % (12.1-15.1) H 01/30/25 11:39 Plt Count 99 10^3/cmm (157-399) L 01/30/25 11:39 MPV 8.9 fL (7.4-10.4) 01/30/25 11:39 Neut % (Auto) 77.7 % 01/30/25 11:39 Lymph % (Auto) 8.7 % 01/30/25 11:39 [place] % (Auto) 10.3 % 01/30/25 11:39 Eos % (Auto) 0.4 % 01/30/25 11:39 Baso % (Auto) 0.2 % 01/30/25 11:39 Neut # (Auto) 6.25 10^3/uL (1.8-7.7) 01/30/25 11:39 Lymph # (Auto) 0.7 10^3/uL (0.8-4.8) L 01/30/25 11:39 [place] # (Auto) 0.8 10^3/uL (0.2-0.9) 01/30/25 11:39 Eos # (Auto) 0.0 10^3/uL (0.0-0.8) 01/30/25 11:39 Baso # (Auto) 0.0 10^3/uL (0.0-0.1) 01/30/25 11:39 Nucleated RBC % (auto) 0 % 01/30/25 11:39 Nucleated RBCs # 0.0 /100WBC 01/30/25 11:39 Specimen Type Arterial 01/30/25 11:03 Sample Site Radial, right 01/30/25 11:03 ABG pH 7.47 (7.35-7.45) H 01/30/25 11:03 ABG pCO2 42.6 mmHg (35-45) 01/30/25 11:03 ABG pO2 68.4 mmHg (80.0-100.0) L 01/30/25 11:03 ABG PO2/FiO2 Ratio 325 01/30/25 11:03 ABG HCO3 30.8 mmol/L (22-26) H 01/30/25 11:03 ABG O2 Saturation 94.9 01/30/25 11:03 ABG Base Excess 6.4 mmol/L (-2.0-2.0) H 01/30/25 11:03 Wili Test Pos 01/30/25 11:03 A-a O2 Gradient 4.0 mmHg (5-10) L 01/30/25 11:03 Hematocrit 41.9 % (37-47) 01/30/25 11:03 Hgb O2 Saturation 92.4 % (95-100) L 01/30/25 11:03 Carboxyhemoglobin 1.8 %THgb (0.4-20.1) 01/30/25 11:03 Methemoglobin 0.9 % (0.4-1.5) 01/30/25 11:03 Total Hemoglobin 13.7 g/dL (12-16) 01/30/25 11:03 Sodium 135.0 mmol/L (131-143) 01/30/25 11:03 Potassium 3.0 mmol/L (3.5-5.0) L 01/30/25 11:03 Glucose 107.0 mg/dL (70-115) 01/30/25 11:03 Ionized Calcium 1.1 mmol/L (1.1-1.4) 01/30/25 11:03 O2 Delivery Device Room air 01/30/25 11:03 FiO2 21.0 % 01/30/25 11:03 Antique Collector ID Shimon 01/30/25 11:03 Sodium 137 mmol/L (136-145) 01/30/25 11:39 Potassium 3.1 mmol/L (3.5-5.1) L 01/30/25 11:39 Chloride 101 mmol/L (98-107) 01/30/25 11:39 Carbon Dioxide 27 mmol/L (22-29) 01/30/25 11:39 Anion Gap 12.1 (5-19) 01/30/25 11:39 BUN 12 mg/dL (8-23) 01/30/25 11:39 Creatinine 0.4 mg/dL (0.5-0.9) L 01/30/25 11:39 GFR Calculation 160.2 mL/min (90-130) H 01/30/25 11:39 Glucose 105 mg/dL (65-115) 01/30/25 11:39 Calculated Osmolality 284 mOsm/kg (285-295) L 01/30/25 11:39 Lactic Acid 0.8 mmol/L (0.5-2.2) 01/30/25 11:39 Calcium 8.0 mg/dL (8.5-10.5) L 01/30/25 11:39 Total Bilirubin 0.8 mg/dL (0.15-1.2) 01/30/25 11:39 AST 12 U/L (0-32) 01/30/25 11:39 ALT 20 U/L (0-33) 01/30/25 11:39 Alkaline Phosphatase 70 U/L (35-105) 01/30/25 11:39 Total Protein 5.1 g/dL (6.6-8.7) L 01/30/25 11:39 Albumin 2.7 g/dL (3.5-5.2) L 01/30/25 11:39 Globulin 2.4 g/dL (1.3-4.6) 01/30/25 11:39 Urine Color Yellow (Yellow) 01/30/25 11:33 Urine Appearance Clear (CLEAR) 01/30/25 11:33 Urine pH 7.0 (5-7) 01/30/25 11:33 Ur Specific [place] 1.010 (1.005-1.030) 01/30/25 11:33 Urine Protein Negative (Negative) 01/30/25 11:33 Urine Glucose (UA) Negative (Normal) 01/30/25 11:33 Urine Ketones Negative (Negative) 01/30/25 11:33 Urine Blood Negative (Negative) 01/30/25 11:33 Urine Nitrate Negative (Negative) 01/30/25 11:33 Urine Bilirubin Negative (Negative) 01/30/25 11:33 Urine Urobilinogen 1.0 mg/dL (Negative) 01/30/25 11:33 Ur Leukocyte Esterase Negative (Negative) 01/30/25 11:33 Urine RBC 0-4 /hpf (0-2) H 01/30/25 11:33 Urine WBC 0-4 /hpf (0-5) H 01/30/25 11:33 Ur Squamous Epith Cells 0-4 /hpf (0-5) H 01/30/25 11:33 Amorphous Sediment Trace /hpf 01/30/25 11:33 Urine Bacteria None /hpf (NONE) 01/30/25 11:33 Urine Mucus None /hpf 01/30/25 11:33 All radiology interpretation(s) finalized by discharge Discharge Plan Discharge Patient Disposition: Home Clinical Impression: Weakness, Accidental medication error, Metastatic cancer to brain Condition: Stable Prescriptions: No Action triamcinolone acetonide 0.1 % cream 1 applic TOPICAL BID Qty: 80 0RF sulfamethoxazole-trimethoprim [Bactrim DS] 800-160 mg tablet 1 tab PO BID 7 Days Qty: 14 0RF lisinopril 10 mg tablet 10 mg PO DAILY Qty: 30 0RF Rx Instructions: needs appt and labs Discharge Orders: Discharge ED (Routine); Ordered 01/30/25 Ordered By: Caprice Pope Referrals: Joanna Diaz DO [Primary Care Provider, [employer]] Discharge Diet: Usual diet Discharge Activity: Increase activity as tolerated Patient Instructions: Opioid Safety, Pain Management, Patient Portal & Sophy Instructions Activity Restrictions/Additional Instructions: Please continue to follow-up with your oncologist and your radiation oncologist as directed. If neurologic symptoms worsen please seek medical attention Thank you for choosing [facility] for your healthcare needs today. You have been screened and evaluated and felt safe for discharge. Health conditions do change or evolve sometimes and as such it is important that you follow up with your Primary Doctor to be re checked, 3-5 days is a general good time frame for follow up. You are always welcome to return to the ED for re assessment if your symptoms are worsening or you have new concerns Print Language: Maltese Coding Level of Care Code ED Academic Advisor for Adri Kemp
[2025-01-30 11:14] LABS: ABG PCO2 42.6 mmHg (35-45); ABG PH Result 7.47 (7.35-7.45); Alveolar-Arterial Oxygen Gradi 4.0 mmHg (5-10); Arterial Blood Gas Hematocrit 41.9 % (37-47); Blood Gas Allen Test Pos; Blood Gas Operator Identificat WALCI; Blood Gas Sample Site Radial, right; Blood Gas Sample Type Arterial; Carboxyhemoglobin 1.8 %THgb (0.4-20.1); Glucose Level-ABG 107.0 mg/dL (70-115); HCO3 ABG 30.8 mmol/L (22-26); Ionized Calcium Level - ABG 1.1 mmol/L (1.1-1.4); Methemoglobin 0.9 % (0.4-1.5); Oxygen Saturation ABG 94.9; PO2 ABG 68.4 mmHg (80.0-100.0); PO2 FiO2 Ratio Arterial Blood 325; Potassium Level - ABG 3.0 mmol/L (3.5-5.0); Sodium Level - ABG 135.0 mmol/L (131-143)
[2025-01-30 11:50] LABS: Hematocrit 40.2 % (36-47); Hemoglobin 12.70 g/dL (11.27-16.99); Mean Corpuscular HGB Conc 31.6 g/dL (30-55); Mean Corpuscular Hemoglobin 30.0 pg (27-33); Mean Corpuscular Volume 94.8 fl (85-98); Nucleated Red Blood Cells % 0 %; Platelet Count 99 10^3/cmm (157-399); Red Blood Count 4.24 10^6/uL (3.85-5.65); White Blood Count 8.05 10^3/uL (3.29-11.43)
[2025-01-30 11:54] LABS: Glucose Urine UA Negative (Normal); Nitrate Urine Negative (Negative); Specific Gravity, Urine 1.010 (1.005-1.030)
[2025-01-30 12:12] LABS: Lactic Sepsis W/Reflex 0.8 mmol/L (0.5-2.2)
[2025-01-30 12:13] LABS: Alanine Aminotransferase 20 U/L (0-33); Albumin Level 2.7 g/dL (3.5-5.2); Alkaline Phosphatase 70 U/L (35-105); Anion Gap 12.1 (5-19); Aspartate Amino Transferase 12 U/L (0-32); Blood Urea Nitrogen 12 mg/dL (8-23); Calcium 8.0 mg/dL (8.5-10.5); Carbon Dioxide 27 mmol/L (22-29); Chloride 101 mmol/L (98-107); Creatinine Clr Calc Pharmacy 103.5526; Globulin 2.4 g/dL (1.3-4.6); Glucose 105 mg/dL (65-115); Osmolality Calculated 284 mOsm/kg (285-295); Potassium 3.1 mmol/L (3.5-5.1); Sodium 137 mmol/L (136-145); Total Protein 5.1 g/dL (6.6-8.7)
[2025-01-30 12:50] VITALS: BP 123/84; PULSE 94; O2SAT 96
--- NOTE | 2025-01-30 14:06 | PC.PHAR ---
Family members Kamini and Meri can be contacted for questions. They take care of pt during the week and set up medications.
== END 2025-01-30 17:42 | disposition home or self-care (01) ==
PROVIDERS: Emergency Provider Emergency Medicine; PCP Family Medicine
DX: C79.31 Secondary malignant neoplasm of brain (principal); R53.1 Weakness; T50.1X5A Adverse effect of loop [high-ceiling] diuretics, initial encounter; X58.XXXA Exposure to other specified factors, initial encounter
CPT/HCPCS: 36415; 36600; 70450; 71045; 80051; 80053; 81001; 82330; 82805; 83605; 85025; 87040; 96374; 99285; J1100